=== PATIENT | female | born 1960 | race Caucasian/White ===

== ENCOUNTER 2017-06-05 11:59 | Emergency (ER) | payer MEDICARE ==
[2017-06-05 12:21] VITALS: BP 98/68
--- NOTE | 2017-06-05 12:45 | UC ---
Throat Pain/Nasal Jaylan HPI - HPI Summary HPI Summary: TWO WEEKS OF SINUS PRESSURE HEADACHE, THREE DAYS OF WORSENING COUGH. - History of Current Complaint Chief Complaint: UCRespiratory Stated Complaint: CONGESTION,COUGH Time Seen by Provider: 06/05/17 12:03 Hx Obtained From: Patient Hx Last Menstrual Period: age 40s Onset/Duration: Gradual Onset, Lasting Weeks, Worse Since - 3 DAYS Severity: Moderate Cough: Productive Associated Signs & Symptoms: Positive: Wheezing, Hoarseness, Sinus Discomfort, Nasal Discharge - Epiglottits Risk Factors Epiglottis Risk Factors: Negative - Allergies/Home Medications Allergies/Adverse Reactions: Allergies Allergy/AdvReac Type Severity Reaction Status Date / Time Methotrexate Allergy Pain Verified 05/29/16 15:27 Pregabalin [From Lyrica] Allergy Unknown Verified 05/29/16 15:27 Reaction Details Home Medications: Home Medications Folic Acid TAB* [Folvite TAB*] 800 mcg PO DAILY 06/05/17 [History Confirmed 09/09] Vitamin B Complex CAP* [B Complex CAP*] 1 cap PO DAILY 06/05/17 [History Confirmed 06/05/17] Vitamin D 3000 Units 1 tab PO DAILY 06/05/17 [History Confirmed 06/05/17] PMH/Surg Hx/FS Hx/Imm Hx Previously Healthy: Yes - Surgical History Surgical History: Yes Surgery Procedure, Year, and Place: Hysterectomy. Lymph Node Removal, LEFT THROAT 2010 - Family History Known Family History: Positive: Hypertension - Social History Occupation: Employed Full-time Lives: With Family Alcohol Use: None Substance Use Type: None Smoking Status (MU): Light Every Day Tobacco Smoker Type: Cigarettes Amount Used/How Often: 1 pack daily- less lately Cessation Counseling: Counseled 3+Min - 10 Min Review of Systems Constitutional: Negative Skin: Negative Eyes: Negative ENT: Nasal Discharge, Sinus Congestion, Sinus Pain/Tenderness Respiratory: Cough Cardiovascular: Negative Gastrointestinal: Negative Genitourinary: Negative Motor: Negative Neurovascular: Negative Musculoskeletal: Negative Neurological: Negative Psychological: Negative Is Patient Immunocompromised?: No All Other Systems Reviewed And Are Negative: Yes Physical Exam Triage Information Reviewed: Yes Appearance: No Pain Distress, Well-Nourished, Ill-Appearing Vital Signs: Initial Vital Signs Temp 98.4 F 06/05/17 12:15 Pulse 97 06/05/17 12:15 Resp 12 06/05/17 12:15 BP 98/68 09/12/17 12:15 Pulse Ox 99 06/05/17 12:15 Vital Signs Reviewed: Yes Eye Exam: Normal ENT Exam: Normal ENT: Positive: Hearing grossly normal, TM bulging, TM dull Dental Exam: Normal Neck exam: Normal Neck: Positive: Supple, Nontender, No Lymphadenopathy Respiratory Exam: Other - COUGH Respiratory: Positive: Chest non-tender, No respiratory distress, No accessory muscle use, Wheezing Cardiovascular Exam: Normal Cardiovascular: Positive: RRR, No Murmur, Pulses Normal Abdominal Exam: Normal Abdomen Description: Positive: Nontender Musculoskeletal Exam: Normal Neurological Exam: Normal Psychological Exam: Normal Skin Exam: Normal Throat Pain/Nasal Course/Dx - Differential Dx/Diagnosis Differential Diagnosis/HQI/PQRI: Pharyngitis, Sinusitis, Tonsillitis, URI Provider Diagnoses: SINUSITIS; BRONCHITIS WITH BRONCHOSPASM; TOBACCO ABUSE Discharge - Discharge Plan Condition: Stable Disposition: HOME Prescriptions: Albuterol HFA INHALER* [Ventolin HFA Inhaler*] 1 - 2 puff INH Q6H PRN #1 mdi PRN Reason: Wheezing Benzonatate CAP* [Tessalon 100 MG CAP*] 100 mg PO TID PRN #15 cap PRN Reason: Cough DOXYcycline CAP(*) [DOXYcycline 100MG CAP(*)] 100 mg PO BID #20 cap Patient Education Materials: How to Stop Smoking (ED), Sinusitis (ED), Acute Bronchitis (ED), Bronchospasm (ED) Referrals: Marycruz Prabhakar MD [Primary Care Provider] -
== END 2017-06-05 13:07 | disposition home or self-care (01) ==
LOC: UCCORT 11:59
DX: J32.9 Chronic sinusitis, unspecified (principal); J20.9 Acute bronchitis, unspecified; F17.210 Nicotine dependence, cigarettes, uncomplicated; Z71.6 Tobacco abuse counseling
CPT/HCPCS: 99212; G0463

== ENCOUNTER 2018-11-28 11:03 | Emergency (ER) | payer MEDICARE ==
[2018-11-28 11:43] VITALS: BP 122/72
--- NOTE | 2018-11-28 11:56 | UC ---
Respiratory Complaint HPI - HPI Summary HPI Summary: 58 yo female with cough/wheezing and nasal congestion/sinus pressure x months worse past few days unable to get inhalers filled due to poor prescription coverage no f/c sore left auricle which she blames on headphones - History of Current Complaint Chief Complaint: UCRespiratory Stated Complaint: COUGH,CONGESTION Time Seen by Provider: 11/28/18 11:49 Hx Obtained From: Patient Hx Last Menstrual Period: age 40s Onset/Duration: Gradual Onset, Lasting Weeks, Worse Since - 3d Timing: Constant Severity Initially: Mild Severity Currently: Moderate Pain Intensity: 6 Pain Scale Used: 0-10 Numeric Character: Cough: Productive, Sputum Description: - yellow/thick Aggravating Factors: Recumbent Position Alleviating Factors: Nothing Associated Signs And Symptoms: Positive: Wheezing, Nasal Congestion, Sinus Discomfort - Allergies/Home Medications Allergies/Adverse Reactions: Allergies Allergy/AdvReac Type Severity Reaction Status Date / Time methotrexate Allergy Pain Verified 11/28/18 11:35 pregabalin [From Lyrica] Allergy See Comment Verified 11/28/18 11:35 Home Medications: Home Medications Pseudoephedrine TAB* [Sudafed TAB*] 30 mg PO Q6H PRN 11/28/18 [History Confirmed 11/28/18] PMH/Surg Hx/FS Hx/Imm Hx Previously Healthy: Yes - RA Respiratory History: COPD - Surgical History Surgical History: Yes Surgery Procedure, Year, and Place: Hysterectomy. Lymph Node Removal, LEFT THROAT 2010. hand x4 - Family History Known Family History: Positive: Hypertension - Social History Alcohol Use: None Substance Use Type: None Smoking Status (MU): Heavy Every Day Tobacco Smoker Type: Cigarettes Amount Used/How Often: 1 pack daily- less lately Review of Systems All Other Systems Reviewed And Are Negative: Yes Constitutional: Positive: Negative Skin: Positive: Negative Eyes: Positive: Negative ENT: Positive: Nasal Discharge, Sinus Congestion, Sinus Pain/Tenderness Respiratory: Positive: Cough Cardiovascular: Positive: Negative Gastrointestinal: Positive: Negative Genitourinary: Positive: Negative Motor: Positive: Negative Neurovascular: Positive: Negative Musculoskeletal: Positive: Arthralgia Neurological: Positive: Negative Psychological: Positive: Negative Physical Exam Triage Information Reviewed: Yes Appearance: Well-Appearing, No Pain Distress, Well-Nourished Vital Signs: Initial Vital Signs Temp 97.2 F 11/28/18 11:38 Pulse 78 11/28/18 11:38 Resp 16 11/28/18 11:38 BP 122/72 11/28/18 11:38 Pulse Ox 99 11/28/18 11:38 Vital Signs Reviewed: Yes Eyes: Positive: Conjunctiva Clear ENT: Positive: Hearing grossly normal, Pharynx normal, Nasal congestion, Nasal drainage, TMs normal, Sinus tenderness, Uvula midline. Negative: Tonsillar swelling, Tonsillar exudate, Trismus, Muffled voice, Hoarse voice, Dental tenderness Dental: Positive: Gross Decay/Caries @ - abysmal dentition with most teeth rotted to gum line Neck: Positive: Supple, Nontender, No Lymphadenopathy Respiratory: Positive: No respiratory distress, No accessory muscle use Cardiovascular: Positive: RRR, No Murmur Musculoskeletal: Positive: ROM Intact, No Edema Neurological: Positive: Alert Psychological Exam: Normal Skin Exam: Normal Images Head: 1 - imflammed area/scabbed Respiratory Course/Dx - Differential Dx/Diagnosis Provider Diagnosis: Acute bronchitis with bronchospasm, Sinusitis, acute, Smoker Discharge - Sign-Out/Discharge Documenting (check all that apply): Patient Departure All imaging exams completed and their final reports reviewed: No Studies - Discharge Plan Condition: Stable Disposition: HOME Prescriptions: Amoxicillin PO (*) [Amoxicillin 875 MG (*)] 875 mg PO BID #14 tab Fluticasone NASAL SPRAY 50MCG* [Flonase NASAL SPRAY 50MCG*] 2 spray BOTH NARES BID #1 btl Mupirocin 2% OINT* [Bactroban 2 % Oint*] 1 applic TOPICAL TID #1 tube predniSONE [Deltasone 20 MG TAB] 40 mg PO DAILY #10 tab Patient Education Materials: Acute Bronchitis (ED), Sinusitis (ED) Referrals: Marycruz Prabhakar MD [Primary Care Provider] - 7 Days Additional Instructions: If ear lesion does not heal with the ointment we prescribe it needs rechecking - Billing Disposition and Condition Condition: STABLE Disposition: Home
[2018-11-28] MEDS ORDERED: Albuterol HFA INHALER* 8 gm MDI INH ONE (11:59)
== END 2018-11-28 12:45 | disposition home or self-care (01) ==
LOC: UCCORT 11:03
DX: J44.0 Chronic obstructive pulmonary disease with (acute) lower respiratory infection (principal); J20.9 Acute bronchitis, unspecified; J32.9 Chronic sinusitis, unspecified; M06.9 Rheumatoid arthritis, unspecified; R23.4 Changes in skin texture; F17.210 Nicotine dependence, cigarettes, uncomplicated; Z88.8 Allergy status to other drugs, medicaments and biological substances
CPT/HCPCS: 99213; A9270-GY; G0463

== ENCOUNTER 2018-12-06 08:25 | Emergency (ER) | payer MEDICARE ==
--- OUTSIDE RECORDS SUMMARY | 2018-12-06 08:34 | XMS REPORT | Continuity of Care Document ---
:1960 Author Organization [facility] Address [address], [place] [id number] Phone Care Team Providers Name Role Phone Sumeet Mccall MD Unavailable Unavailable Allergies, Adverse Reactions, Alerts Substance Reaction Status Methotrexate Analogues Active pregabalin Active Medications Medication Instructions Dosage Effective Dates Status Comments (start - stop) esomeprazole magnesium take 1 capsule by 40 MG - Active 40 mg capsule,delayed oral route every release day cyclobenzaprine 10 mg take 1-2 tablets - Active tablet by oral route at bedtime only as needed Remicade 100 mg infuse 400 400 milligram - Active intravenous solution milligram by intravenous route every 8 weeks magnesium 200 mg take 1 tablet by 1 tablet - Active tablet oral route every day Vitamin B-12 1,000 mcg take 1 Tablet by 1 Tablet - Active tablet Oral route every day Celebrex 200 mg take 1 - 2 - Active capsule capsules by oral route every day as needed folic acid 800 mcg take 1 tablet by 0.8 MG - Active tablet oral route every day Vitamin D3 5,000 unit take 1 by Oral 1 - Active tablet route once Pristiq 100 mg 24 hr take 1 tablet 100 MG - Active Tab (100MG) by oral route every day Problems Condition Effective Dates Clinical Status Comments (start - stop) Rheumatoid arthritis w/o rheumatoid factor, multiple sites Rheumatoid arthritis w/o rheumatoid factor, multiple sites Other snf (current) drug therapy Rheumatoid arthritis w/o rheumatoid factor, multiple sites Rheumatoid arthritis w/o rheumatoid factor, multiple sites Other snf (current) drug therapy Rheumatoid arthritis w/o rheumatoid factor, multiple sites Rheumatoid arthritis w/o rheumatoid factor, multiple sites Rheumatoid arthritis w/o rheumatoid factor, multiple sites Other terminal worker (current) drug therapy Rheumatoid arthritis w/o rheumatoid factor of multiple sites Rheumatoid arthritis w/o rheumatoid factor of multiple sites Rheumatoid arthritis w/o rheumatoid factor of multiple sites Primary generalized (osteo)arthritis 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 Other snf drug 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 of non-steroidal anti-inflammatories (NSAID) Polyarthritis Rheumatoid arthritis w/o rheumatoid factor of multiple sites Rheumatoid arthritis w/o rheumatoid factor of multiple sites Other terminal worker drug therapy 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 Rheumatoid arthritis w/o rheumatoid factor of multiple sites Rheumatoid arthritis w/o rheumatoid factor of multiple sites Rheumatoid arthritis w/o rheumatoid factor of multiple sites Other terminal worker drug therapy 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 Rheumatoid arthritis w/o rheumatoid factor of multiple sites Rheumatoid arthritis w/o rheumatoid factor of multiple sites Other terminal worker drug therapy Rheumatoid arthritis w/o rheumatoid factor of multiple sites Primary generalized (osteo)arthritis Other terminal worker drug therapy 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) use of non-steroidal anti-inflammatories (NSAID) Rheumatoid arthritis w/o rheumatoid factor of multiple sites 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 Rheumatoid arthritis w/o rheumatoid factor of multiple sites 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) use of non-steroidal anti-inflammatories (NSAID) Other terminal worker drug therapy 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 Rheumatoid arthritis w/o rheumatoid factor of multiple sites Other terminal worker drug therapy Tobacco use Rheumatoid arthritis w/o rheumatoid factor of multiple sites Other snf drug therapy Primary generalized (osteo)arthritis care home (current) use of non-steroidal anti-inflammatories (NSAID) Rheumatoid arthritis w/o rheumatoid factor of multiple sites Other terminal worker drug therapy Primary generalized (osteo)arthritis Rheumatoid arthritis w/o rheumatoid factor of multiple sites Polyarthritis Other snf drug therapy Rheumatoid arthritis w/o rheumatoid factor of multiple sites Polyarthritis Other terminal worker drug therapy Primary generalized (osteo)arthritis Rheumatoid arthritis w/o rheumatoid factor of multiple sites Other terminal worker drug therapy Primary generalized (osteo)arthritis Polyarthritis Rheumatoid arthritis, unspecified Other snf drug therapy Other terminal worker (current) drug therapy Rheumatoid arthritis, unspecified Other terminal worker (current) drug therapy Rheumatoid factor negative - Active Rheumatoid arthritis - Active Mapped from [facility] Chronic Conditions table on 12/01/2014 by the ICD9 to [employer] Bulk Mapping Utility. The mapped diagnosis code was Rheumatoid Arthritis, 714.0, added by Velvet Ochoa LPN, with responsible provider Yumiko Lopez PA-C. Onset date 04/25/2013; last addressed on 07/21/2014. Procedures Procedure Date CHEMO, IV INFUSION, 1 HR CHEMO, IV INFUSION, ADDL HR Infliximab injection Remicade Normal saline solution infus Results Test Name Date and Time Measure Units Reference Range Abnormal Flag Status Comments No information Advance Directives Directive Yes / No Effective Date File Name No information Encounters Encounter Practice Location Reason(s) Diagnoses Date Provider Providers Description For Visit Copied on Encounter Arthritis Arthritis Rheumatoid Stefany STAHL [facility] arthritis w/o 0 Sumeet. 5794 Provider: Pawel jaffe 9 [facility], 5794 PLLC Wil matrinez Kragh MD, [facility], [address] [place] [address], [facility] [place], [id number], [address], . [address], [id number], tel:[phone] E. [place], tel:+4 [place], [address]. 99[address] tel:[phone] Arthritis Arthritis Rheumatoid John [facility] arthritis w/o RENA December. Provider: Pawel Armas rheumatoid 9 57 [facility], 5794 PLLC Koko martinez MD, [facility], [address] [place], [place] [address]Other [place], [place], snf [place], [address], (current) drug [id number], [address], [id number], therapy [place]. E. [place] tel:[phone] [place], tel:[phone] [place], [address]. 614165 tel:[phone] Arthritis Arthritis Rheumatoid [facility] arthritis w/o MD Hsieh. Provider: Pawel Armas rheumatoid 8 5794 Le [facility], 5794 PLLC factor, Koko Wadsworth MD, [facility], [address] [place] [address], [place], [place], [place], [address], [id number], [address], [id number], [place]. [place]. [place] tel:[phone] [place], tel:[phone] [place], [address]. 067846 tel:[phone] Arthritis Arthritis Rheumatoid [facility] arthritis w/o 0 CA-C December. Provider: Pawel jaffe 8 5794 [facility], 5794 PLLC factor, [facility], 6 [facility], [facility], [facility], terminal worker [place], [place], [place], (current) drug [id number], [place], [address]. [id number], therapy [place]. tel:+[phone] [place] tel:[phone] tel:[phone] Arthritis Arthritis Rheumatoid [facility] arthritis w/o MD Hsieh. Provider: Pawel Armas rheumatoid 8 5794 Le [facility], 5794 PLLC factor, Koko Wadsworth MD, [facility], [address] [place] [address], [place], [facility] [place], [address], [id number], [address], [id number], [place]. [place]. [place] tel:[phone] [place], tel:[phone] [place], [address]. [address] tel:[phone] Arthritis Arthritis Rheumatoid [facility] arthritis w/o MD Hsieh. Provider: Pawel Armas rheumatoid 8 5794 Le [facility], 5794 PLLC factor, Koko Wadsworth MD, [facility], [address] [place] [address], [place], [facility], [place], [address], [id number], [address], [id number], [place]. E. [place] tel:[phone] [place], tel:[phone] [place], [address]. 130487 tel:[phone] Arthritis Arthritis Rheumatoid [facility] arthritis w/o PA-C December. Provider: Pawel jaffe 8 5794 Le [facility], 5794 PLLC factor, Koko Wadsworth MD, [facility], [address] [place] [address], sitesOther [place], [place], snf [place], [address], (current) drug [id number], [address], [id number], therapy [place]. E. US tel:[phone] [place], tel:[phone] [place], [address]. 430805 tel:[phone] Arthritis Arthritis Rheumatoid [facility] arthritis w/o MD Hsieh. Provider: Pawel jaffe 8 5794 [facility], 5794 PLLC factor of Koko Wadsworth MD, [facility], [address], [place], [place], [place], [address], [id number], [address], [id number], [place]. E. [place] tel:[phone] [place], tel:[phone] [place], [address]. 896886 tel:[phone] Arthritis Arthritis Rheumatoid [facility] arthritis w/o MD Hsieh. Provider: Pawel jaffe 8 5794 Le [facility], 5794 PLLC factor of Koko Wadsworth MD, [facility], [address] [place] [address], [place], [place], [place], [address], [id number], [address], [id number], [place]. E. [place] tel:[phone] [place], tel:[phone] [place], [address]. 131830 tel:[phone] Arthritis Arthritis Rheumatoid [facility] arthritis w/o PA-C December. Provider: Associates Associates rheumatoid 8 5794 Le [facility], 5794 PLLC factor of Koko Wadsworth MD, [facility], [address] [place] [address], sitesPrimary [place], [place], generalized [place], [address], (osteo)arthrit [id number], [address], [id number], isOther [place]. E. [place] unilateral tel:[phone] [place], tel:[phone] [place] [address] [place], [address]. 522[address] of first tel:[phone] carpometacarpa [id number] l joint of right handOther terminal worker drug therapyLong term (current) use of non-steroidal anti-inflammat ories (NSAID)Polyart hritis Arthritis Arthritis Rheumatoid Nov- [facility] arthritis w/o MD Hsieh. Provider: Pawel Armas rheumatoid 8 5794 [facility], 5794 PLLC factor of Koko Wadsworth MD, [facility], [address] [place] [address], [place], [place], [place], [address], [id number], [address], [id number], [place]. E. [place] tel:[phone] [place], tel:[phone] [place], [address]. 754234 tel:[phone] Arthritis Arthritis Rheumatoid Oct- [facility] arthritis w/o PA-C December. Provider: Pawel Armas rheumatoid 8 5794 Le [facility], 5794 PLLC factor of Koko Wadsworth MD, [facility], [address] [place] [address], sitesOther [place], [place], snf drug [place], [address], therapyOther [id number], [address], [id number], unilateral [place]. E. [place] secondary OA tel:[phone] [place], tel:[phone] [place] [address] [place], [address]. 768244 carpometacarpa tel:[phone] l joint of [id number] right hand Arthritis Arthritis Rheumatoid [facility] arthritis w/o 2 MD Hsieh. Provider: Pawel Armas rheumatoid 8 5794 Le [facility], 5794 PLLC factor of Koko Wadsworth MD, [facility], [address], [place], [place], [place], [address], [id number], [address], [id number], [place]. [place]. [place] tel:[phone] [place], tel:[phone] [place], [address]. 603879 tel:[phone] Arthritis Arthritis Rheumatoid Jul- [facility] arthritis w/o MD Hsieh. Provider: Associates Pawel rheumatoid 7 5794 Le PLL[facility], 5794 PLLC factor of Koko Wadsworth MD, [facility], [address], [place], [place], [place], [address], [id number], [address], [id number], [place]. E. [place] tel:[phone] [place], tel:[phone] [place], [address]. 493464 tel:[phone] Arthritis Arthritis Rheumatoid [facility] arthritis w/o CA-C December. Provider: Pawel Armas rheumatoid 7 5794 Le [facility], 5794 PLLC factor of Koko Wadsworth MD, [facility], [address] [place] [address], sitesOther [place], [place], snf drug [place], [address], therapyOther [id number], [address], [id number], unilateral [place]. E. [place] secondary OA tel:[phone] [place], tel:[phone] [place], [address]. 673[address] carpometacarpa tel:[phone] l joint of [id number] right hand Arthritis Arthritis Rheumatoid [facility] arthritis w/o 2 MD Hsieh. Provider: Pawel Armas rheumatoid 7 5794 Le [facility], 5794 PLLC factor of Koko Wadsworth MD, [facility], [address], [place], [place], [place], [address], [id number], [address], [id number], [place]. E. [place] tel:[phone] [place], tel:[phone] [place], [address]. 676593 tel:[phone] Arthritis Arthritis Rheumatoid Mar- [facility] arthritis w/o 0 PA-C Provider: Pawel Armas rheumatoid 7 B. 5794 Le PLLC, 5794 PLLC factor of Koko Wadsworth MD, [facility], [address], sitesOther [place], [place], snf drug [place], [address], therapy [id number], [address], [id number], [place]. E. [place] tel:[phone] [place], tel:[phone] [place], [address]. 051533 tel:[phone] Arthritis Arthritis Rheumatoid [facility] arthritis w/o PA-C December. Provider: Pawel Armas rheumatoid 7 5794 Le [facility], 5794 PLLC factor of Koko Wadsworth MD, [facility], [address], sitesPrimary [place], [place], generalized [place], [address], (osteo)arthrit [id number], [address], [id number], isOther long [place]. E. [place] term drug tel:[phone] [place], tel:[phone] therapyOther [address] [place], [address]. 2638[address] unilateral tel:[phone] secondary OA [id number] of first carpometacarpa l joint of right handLong term (current) use of non-steroidal anti-inflammat ories (NSAID) Arthritis Arthritis Rheumatoid Dec- [facility] arthritis w/o PA-C December. Provider: Pawel Armas rheumatoid 7 5794 Le [facility], 5794 PLLC factor of Koko Wadsworth MD, [facility], [address], sitesOther [place], [place], unilateral [place], [address], secondary OA [id number], [address], [id number], of first [place]. E. [place] carpometacarpa tel:[phone] [place], tel:[phone] [address] [place], [address]. 311005 right hand tel:[phone] Arthritis Arthritis Rheumatoid Nov- [facility] arthritis w/o PA-C December. Provider: Pawel Armas rheumatoid 7 5794 Le [facility], 5794 PLLC factor of Koko Wadsworth MD, [facility], [address] [place] [address], sitesLong term [place], [place], (current) use [place], [address], of [id number], [address], [id number], non-steroidal [place]. E. US anti-inflammat tel:[phone] [place], tel:[phone] ories [address] [place], [address]. 016887 (NSAID)Other tel:[phone] snf drug [phone] therapyOther unilateral secondary OA of first carpometacarpa l joint of right hand Arthritis Arthritis Rheumatoid [facility] arthritis w/o 0 PA-C Thompson. Provider: Pawel Armas rheumatoid 7 5794 Le PLL[facility], 5794 PLLC factor of Koko Wadsworth MD, [facility], [address], sitesOther [place], [place], terminal worker drug [place], [address], therapyTobacco [id number], [address], [id number], use [place]. E. [place] tel:[phone] [place], tel:[phone] [place], [address]. 825306 tel:[phone] Arthritis Arthritis Rheumatoid [facility] arthritis w/o 0 PA-C December. Provider: Pawel Armas rheumatoid 6 5794 Le PLL[facility], 5794 PLLC factor of Koko Wadsworth MD, [facility], [address], sitesOther [place], [place], snf drug [place], [address], therapyPrimary [id number], [address], [id number], generalized [place]. E. [place] (osteo)arthrit tel:[phone] [place], tel:[phone] isLong [place] [address] [place], [address]. 774667 (current) use tel:[phone] of [phone] non-steroidal anti-inflammat ories (NSAID) Arthritis Arthritis Rheumatoid [facility] arthritis w/o alanna Barth. Provider: Pawel Armas rheumatoid 6 5794 Le PLL[facility], 5794 PLLC factor of Koko Wadsworth MD, [facility], [address], sitesOther [place], [place], snf drug [place], [address], therapyPrimary [id number], [address], [id number], generalized [place]. E. [place] (osteo)arthrit tel:[phone] [place], tel:[phone] [place] [address] [place], [address]. 199165 tel:[phone] Arthritis Arthritis Rheumatoid Mar- Tonya GATEMAN-C [facility] arthritis w/o Gale. 5794 Provider: aPwel jaffe 6 [facility], 5794 PLLC factor of Ananth De La Torre MD, [facility] [place], [address], sitesPolyarthr [place], [place], itisOther long [id number], [address], term drug [place]. [address], [id number], therapy tel:[phone] [place]. [place] [address] [place], tel:[phone] [place], [address]. 729317 tel:[phone] Arthritis Arthritis Rheumatoid January- [facility] arthritis w/o PA-C December. Provider: Pawel jaffe 6 5794 Le [facility], 5794 PLLC factor of Koko Wadsworth MD, [facility], [address], sitesPolyarthr [place], [place], itisOther long [place], [address], term drug [id number], [address], [id number], therapyPrimary [place]. E. [place] generalized tel:[phone] [place], tel:[phone] (osteo)arth[place] [address] [place], [address]. 108[address] is tel:[phone] Arthritis Arthritis Rheumatoid Nov- [facility] arthritis w/o PA-C December. Provider: Pawel Armas rheumatoid 6 5794 Le [facility], 5794 PLLC factor of Koko Wadsworth MD, [facility] [address], [address], sitesOther [place], [place], snf drug [place], [address], therapyPrimary [id number], [address], [id number], generalized [place]. E. US (osteo)arthrit tel:[phone] [place], tel:[phone] isPolyarthriti [address] [place], [address]. 423704 s tel:[phone] Arthritis Arthritis Rheumatoid Feb-0 [facility] arthritis, 4 PA-C December. Provider: Pawel Armas unspecifiedOth 6 5794 Le PLL[facility], 5794 PLLC er terminal worker [facility] Ananth STAHL, [facility] drug therapy [place], [address], [place], [place], [place], [address], [id number], [address], [id number], [place]. E. [place] tel:[phone] [place], tel:[phone] [address] [place], [address]. 666339 tel:[phone] Arthritis Arthritis Other long [facility] term (current) MD Hsieh. [facility] drug therapy 6 5794 PLLC, 5794 PLLC [facility], [address], [place], [place], [place], [id number], [id number], [place]. [place] tel:[phone] tel:[phone] Arthritis Arthritis Rheumatoid [facility] arthritis, 0 [place]. Provider: Pawel Armas unspecifiedOth 5 5794 Le PLL[facility], 5794 PLLC er terminal worker [facility], [facility] (current) drug [place], [address], therapy [place], [place], [place], [address], [id number], [address], [id number], [place]. E. US tel:[phone] [place], tel:[phone] [address] [place], [address]. 665472 tel:[phone] Arthritis Arthritis Sep- [facility] 7 PA-C December. [facility] 5 5794 PLLC, 5794 PLLC [facility], [address], [place], [place], [place], [id number], [id number], [place]. US tel:[phone] tel:[phone] Arthritis Arthritis [facility] PA-C December. Provider: [facility] 4 5794 Le PLLKaylin, 5794 PLLC Koko Wadsworth MD, [facility], [address] [place] [address], [place], [facility] [place], [place], [address], [id number], [address], [id number], [place]. E. US tel:[phone] [place], tel:[phone] [address] [place], [address]. 113459 tel:[phone] Arthritis Arthritis [facility] PA-C December. Provider: Associates Pawel 4 5794 Le DIANE, 5794 PLLC Koko Wadsworth MD, [facility], [address] [place] [address], [place], [facility] [place], [place], [address], [id number], [address], [id number], [place]. E. US tel:[phone] [place], tel:[phone] [place], [address]. 699185 tel:[phone] Arthritis Arthritis [facility] PA-C December. Provider: Associates Pawel 3 5794 Le DIANE, 5794 PLLC Koko Wadsworth MD, [facility], [address] [place] [address], [place], [facility] [place], [place], [address], [id number], [address], [id number], [place]. E. US tel:[phone] [place], tel:[phone] [place], [address]. 082623 tel:[phone] Arthritis Arthritis [facility] PA-C December. Provider: [facility] 1 5794 Le DIANE, 5794 PLLC Koko Wadsworth MD, [facility], [address] [place] [address], [place], [place], [place], [address], [id number], [address], [id number], [place]. E. US tel:[phone] [place], tel:[phone] [place], [address]. 957655 tel:[phone] Arthritis Arthritis [facility] 5-201 PA-C December. Provider: [facility] 1 5794 Le [facility], 5794 PLLC [facility], [facility], [facility] [address], [place], [facility], [place], [address], [id number], [address], [id number], [place]. E. US tel:[phone] [place], tel:[phone] [place], [address]. 619804 tel:[phone] Family History Family Member Diagnosis Age At Onset Grandfather Uncles Father Mother Aunt Immunizations Vaccine Date Status Comments Influenza, injectable, administered Source: Other Provider quadrivalent, split virus, 18 years or older Afluria Quad Influenza, injectable, administered Source: Other Provider trivalent, split virus, 4 years and older, Fluvirin [id number] Refused Flu vaccine administered Source: New Immunization Record Refused Flu vaccine administered Source: New Immunization Record Never had Zoster administered Source: New Immunization Record pneumo (2 yrs or older) administered Source: New Immunization Record (PPV23) Payers Payer name Insurance type Covered libertarian ID Authorization(s) Medicare MB [id number] AARP Supplement CI [id number] Social History Type Description Quantity Date Captured Comments Alcohol Use Details Unknown Caffeine Use Details Unknown Tobacco Use Status Smoking Status Unknown Sex Female Vital Signs Date / Height Weight BMI Pulse Blood Temperature Respiratory Body Head BMI Pulse Inhaled Time: Rate Pressure Rate Surface Circumference percentile Ox Ox Area 140.00 72 130/82 97.30 F 16 /min -2019 lbs /min mm[Hg] 12:27 PM 118/62 -2019 mm[Hg] 2:27 PM Chief Complaint And Reason For Visit No information Reason For Referral Reason For Referral No information Plan Of Treatment Date Type Action Status Goal Tobacco cessation counseling completed Goal Tobacco cessation counseling completed Goal Tobacco cessation counseling completed Goal Tobacco cessation counseling completed Goal Tobacco cessation counseling completed Goal Tobacco cessation counseling completed Goal Tobacco cessation counseling completed Goal Tobacco cessation counseling completed Goal Tobacco cessation counseling completed Referral Ordered: ordered [facility] (related to 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 Evaluate and treat Referral Ordered: ordered *DXA BONE DENSITY, AXIAL Appointment date/timeframe: 10/28/2015 Referral Ordered: ordered Orthopedics (related to Osteoarthrosis, unspecified whether generalized or ) Referral Ordered: ordered *SACROILIAC JOINTS X-RAY, MORE THAN 3 VIEWS Referral Ordered: ordered Referral: Orthopedics. Referral Ordered: ordered *LUMBOSACRAL SPINE X-RAY, 4 VIEWS Referral Ordered: ordered *CERVICAL SPINE X-RAY, 4 VIEWS Appointment Courtney Tsang BOOKED Appointment Courtney Tsang BOOKED History Of Present Illness Encounter Date Complaint History Of Present Illness No information Functional Status Date Functional Assessment No information Medications Administered Medication Instructions Dosage Effective Dates (start - stop) Status Comments No information Instructions Date Instruction Additional Information Reviewed importance of compliance/adherence to medications prescribed Risks/benefits of medications reviewed Discussed importance of holding DMARDs/ biologics if patient develops an infection and to notify the treating physician Reviewed importance of compliance/adherence to medications prescribed Risks/benefits of medications reviewed Discussed importance of holding DMARDs/ biologics if patient develops an infection and to notify the treating physician Risks/benefits of medications reviewed Discussed importance of holding DMARDs/ biologics if patient develops an infection and to notify the treating physician Reviewed importance of compliance/adherence to medications prescribed Reviewed importance of compliance/adherence to medications prescribed Discussed importance of holding DMARDs/ biologics if patient develops an infection and to notify the treating physician Risks/benefits of medications reviewed Risks/benefits of medications reviewed Call if symptoms persist Avoid OTC NSAIDS Risks/benefits of medications reviewed Call if symptoms persist Risks/benefits of medications reviewed Reviewed importance of compliance/adherence to medications prescribed Call if symptoms persist Risks/benefits of medications reviewed Discussed importance of holding DMARDs/ biologics if patient develops an infection and to notify the treating physician Reviewed importance of compliance/adherence to medications prescribed Risks/benefits of medications reviewed Discussed importance of holding DMARDs/ biologics if patient develops an infection and to notify the treating physician Reviewed importance of compliance/adherence to medications prescribed Risks/benefits of medications reviewed Discussed importance of holding DMARDs/ biologics if patient develops an infection and to notify the treating physician Risks/benefits of medications reviewed Post injection care reviewed, instructions given Reviewed importance of compliance/adherence to medications prescribed Risks/benefits of medications reviewed Discussed importance of holding DMARDs/ biologics if patient develops an infection and to notify the treating physician Avoid OTC NSAIDS Risks/benefits of medications reviewed Labs ordered to check blood counts, liver and kidney functions to monitor safety of medication. Reviewed importance of compliance/adherence to medications prescribed Avoid live vaccines Risks/benefits of medications reviewed Discussed importance of holding DMARDs/ biologics if patient develops an infection and to notify the treating physician Labs ordered to check disease activity. Discussed / Reviewed Labs Patient plan printed and given along with recommendations call if symptoms worsen maintain adequate water intake every day Reviewed importance of compliance/adherence to medications prescribed Risks/benefits of medications reviewed Discussed importance of holding DMARDs/ biologics if patient develops an infection and to notify the treating physician Labs ordered to check disease activity. Labs ordered to check blood counts, liver and kidney functions to monitor safety of medication. Daily range of motion exercises for symptomatic joints recommended. continue same medication plan Avoid live vaccines Discussed importance of holding DMARDs/ biologics if patient develops an infection and to notify the treating physician Reviewed importance of compliance/adherence to medications prescribed Avoid live vaccines Exercise more Discussed importance of holding DMARDs/ biologics if patient develops an infection and to notify the treating physician Stretching Reviewed importance of compliance/adherence to medications prescribed Risks/benefits of medications reviewed Discussed importance of holding DMARDs/ biologics if patient develops an infection and to notify the treating physician Risks/benefits of medications reviewed Reviewed importance of compliance/adherence to medications prescribed Discussed importance of holding DMARDs/ biologics if patient develops an infection and to notify the treating physician Reviewed importance of compliance/adherence to medications prescribed Risks/benefits of medications reviewed Discussed importance of holding DMARDs/ biologics if patient develops an infection and to notify the treating physician Risks/benefits of medications reviewed Labs ordered to check disease activity. Labs ordered to check blood counts, liver and kidney functions to monitor safety of medication. Discussed / Reviewed Labs hold medication and call if any side effect develops
--- OUTSIDE RECORDS SUMMARY | 2018-12-06 08:35 | XMS REPORT | Continuity of Care Document ---
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 Rheumatoid arthritis w/o rheumatoid factor of multiple sites Rheumatoid arthritis w/o rheumatoid factor of multiple sites Rheumatoid arthritis w/o rheumatoid factor of multiple sites Primary generalized (osteo)arthritis 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 Other alf drug 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-steroidal anti-inflammatories (NSAID) Polyarthritis Rheumatoid arthritis w/o rheumatoid factor of multiple sites Rheumatoid arthritis w/o rheumatoid factor of multiple sites Other pit boss drug therapy 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 Rheumatoid arthritis w/o rheumatoid factor of multiple sites Rheumatoid arthritis w/o rheumatoid factor of multiple sites Rheumatoid arthritis w/o rheumatoid factor of multiple sites Other pit boss drug therapy 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 Rheumatoid arthritis w/o rheumatoid factor of multiple sites Rheumatoid arthritis w/o rheumatoid factor of multiple sites Other pit boss drug therapy Rheumatoid arthritis w/o rheumatoid factor of multiple sites Primary generalized (osteo)arthritis Other pit boss drug therapy 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-steroidal anti-inflammatories (NSAID) Rheumatoid arthritis w/o rheumatoid factor of multiple sites 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 Rheumatoid arthritis w/o rheumatoid factor of multiple sites 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-steroidal anti-inflammatories (NSAID) Other pit boss drug therapy 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 Rheumatoid arthritis w/o rheumatoid factor of multiple sites Other pit boss drug therapy Tobacco use Rheumatoid arthritis w/o rheumatoid factor of multiple sites Other alf drug therapy Primary generalized (osteo)arthritis assisted (current) use of non-steroidal anti-inflammatories (NSAID) Rheumatoid arthritis w/o rheumatoid factor of multiple sites 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 pit boss drug 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 Primary generalized (osteo)arthritis Rheumatoid arthritis w/o rheumatoid factor of multiple sites Polyarthritis Other alf drug therapy Rheumatoid arthritis w/o rheumatoid factor of multiple sites Polyarthritis Other pit boss drug therapy Primary generalized (osteo)arthritis Rheumatoid arthritis w/o rheumatoid factor of multiple sites Other pit boss drug 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 The mapped diagnosis code was Rheumatoid Arthritis, 714.0, added by Velvet Ochoa LPN, with responsible provider Yumiko Lopez PA-C. Onset date 04/25/2013; last addressed on 07/21/2014. Procedures Procedure Date No information Results Test Name Date and Time Measure Units Reference Range Abnormal Flag Status Comments No information Advance Directives Directive Yes / No Effective Date File Name No information Encounters Encounter Practice Location Reason(s) Diagnoses Date Provider Providers Description For Visit Copied on Encounter Arthritis Arthritis Rheumatoid Stefany STAHL [facility] arthritis w/o Sumeet. 5794 Provider: Pawel jaffe 9 [facility], 5794 [facility]C [facility], [facility], [address] [place] [address], [place], [facility], [id number], [address], . [facility] C, [id number], tel:[phone] [place] [address] [place], tel:[phone] [place], [address]. 274543 tel:[phone] Arthritis Arthritis [facility] MD Hsieh. Pawel Armas 9 5794 PLLC, 5794 PLLC [facility], [place], [place], [id number], [id number], [place]. [place] tel:[phone] tel:[phone] Arthritis Arthritis Rheumatoid [facility] arthritis w/o RENA December. Provider: Pawel jaffe 9 5794 Le PLLC, 5794 PLLC Koko martinez MD, [facility], [address] [place] [address], [facility] [place] [place], pit boss [place], [address], (current) drug [id number], [address], [id number], therapy [place]. [place]. [place] tel:[phone] [place], tel:[phone] [place], [address]. 519215 tel:[phone] Arthritis Arthritis Rheumatoid Aug- [facility] arthritis w/o 6 MD Hsieh. Provider: Pawel jaffe 8 5794 Le PLLC, 5794 PLLC factorKoko MD, [facility], [address] [place] [address], [place], [facility], [place], [address], [id number], [address], [id number], [place]. [place]. [place] tel:[phone] [place], tel:[phone] [place], [address]. 885474 tel:[phone] Arthritis Arthritis Rheumatoid Jun- [facility] arthritis w/o 0 NV-C December. Provider: Pawel jaffe 8 5794 [facility] Ring [facility], 5794 PLLC factor, [facility], 6 [facility], [facility], [facility], [place], [place], alf [place], [place], [place], (current) drug [id number], [place], [address]. [id number], therapy [place]. tel:+[phone] [place] tel:[phone] tel:[phone] Arthritis Arthritis Rheumatoid [facility] arthritis w/o 9 MD Hsieh. Provider: Pawel jaffe 8 5794 Le PLLC, 5794 PLLC factorKoko MD, [facility], [address] [place] [address], [place], [facility], [place], [address], [id number], [address], [id number], [place]. [place]. [place] tel:[phone] [place], tel:[phone] [place], [address]. 895232 tel:[phone] Arthritis Arthritis Rheumatoid May-0 [facility] arthritis w/o 4 MD Hsieh. Provider: [facility] rheumatoid 8 5794 Le PLLC, 5794 PLLC factor, Koko Wadsworth MD, [facility], [address] [place] [address], [place], [place], [place], [address], [id number], [address], [id number], [place]. E. [place] tel:[phone] [place], tel:[phone] [place], [address]. 774135 tel:[phone] Arthritis Arthritis Rheumatoid [facility] arthritis w/o NV-C December. Provider: Pawel Armas rheumatoid 8 5794 Le PLLC, 5794 PLLC factor, Koko Wadsworth MD, [facility], [address] [place] [address], sitesOther [place], [place], alf [place], [address], (current) drug [id number], [address], [id number], therapy [place]. E. [place] tel:[phone] [place], tel:[phone] [place], [address]. 641168 tel:[phone] Arthritis Arthritis Rheumatoid [facility] arthritis w/o MD Hsieh. Provider: Pawel Armas rheumatoid 8 5794 Le PLLC, 5794 PLLC factor of Koko Wadsworth MD, [facility], [address] [place] [address], [place], [place], [place], [address], [id number], [address], [id number], [place]. E. [place] tel:[phone] [place], tel:[phone] [place], [address]. 242848 tel:[phone] Arthritis Arthritis Rheumatoid [facility] arthritis w/o MD Hsieh. Provider: Pawel Associates rheumatoid 8 5794 Le PLLC, 5794 PLLC factor of Koko Wadsworth MD, [facility], [address] [place] [address], [place], [place], [place], [address], [id number], [address], [id number], [place]. E. [place] tel:[phone] [place], tel:[phone] [place], [address]. 910613 tel:[phone] Arthritis Arthritis Rheumatoid January-0 [facility] arthritis w/o PA-C December. Provider: Pawel Armas rheumatoid 8 5794 Le PLLC, 5794 PLLC factor of Koko Wadsworth MD, [facility], [address] [place] [address], sitesPrimary [place], [place], generalized [place], [address], (osteo)arthrit [id number], [address], [id number], isOther [place]. E. [place] unilateral tel:[phone] [place], tel:[phone] [place] [address] [place], [address]. [address] of first tel:[phone] carpometacarpa [phone] l joint of right handOther alf drug therapyLong term (current) use of non-steroidal anti-inflammat ories (NSAID)Polyart hritis Arthritis Arthritis Rheumatoid [facility] arthritis w/o MD Hsieh. Provider: Pawel jaffe 8 5794 Le PLLC, 5794 PLLC factor of Koko Wadsworth MD, [facility], [address] [place] [address], [place], [place], [place], [address], [id number], [address], [id number], [place]. E. [place] tel:[phone] [place], tel:[phone] [place], [address]. 878457 tel:[phone] Arthritis Arthritis Rheumatoid [facility] arthritis w/o PA-C December. Provider: Pawel jaffe 8 5794 Le PLLC, 5794 PLLC factor of Koko Wadsworth MD, [facility], [address] [place] [address], sitesOther [place], [place], pit boss drug [place], [address], therapyOther [id number], [address], [id number], unilateral [place]. E. [place] secondary OA tel:[phone] [place], tel:[phone] [place] [address] [place], [address]. 856954 carpometacarpa tel:[phone] l joint of [id number] right hand Arthritis Arthritis Rheumatoid [facility] arthritis w/o 2- MD Hsieh. Provider: Pawel Armas rheumatoid 8 5794 Le PLLC, 5794 PLLC factor of Koko Wadsworth MD, [facility], [address] [place] [address], [place], [place], [place], [address], [id number], [address], [id number], [place]. E. [place] tel:[phone] [place], tel:[phone] [place], [address]. 983029 tel:[phone] Arthritis Arthritis Rheumatoid [facility] arthritis w/o MD Hsieh. Provider: Pawel Armas rheumatoid 7 5794 Le PLLC, 5794 PLLC factor of Koko Wadsworth MD, [facility], [address] [place] [address], [place], [place], [place], [address], [id number], [address], [id number], [place]. E. [place] tel:[phone] [place], tel:[phone] [place], [address]. 217412 tel:[phone] Arthritis Arthritis Rheumatoid [facility] arthritis w/o NV- December. Provider: Pawel Armas rheumatoid 7 5794 Le PLLC, 5794 PLLC factor of Koko Wadsworth MD, [facility], [address] [place] [address], sitesOther [place], [place], pit boss drug [place], [address], therapyOther [id number], [address], [id number], unilateral [place]. E. [place] secondary OA tel:[phone] [place], tel:[phone] [place] [address] [place], [address]. 659016 carpometacarpa tel:[phone] l joint of 7326107 right hand Arthritis Arthritis Rheumatoid [facility] arthritis w/o 2 MD Hsieh. Provider: Pawle Armas rheumatoid 7 5794 Le PLLC, 5794 PLLC factor of Koko Wadsworth MD, [facility], [address] [place] [address], [place], [place], [place], [address], [id number], [address], [id number], [place]. E. [place] tel:[phone] [place], tel:[phone] [place], [address]. 116311 tel:[phone] Arthritis Arthritis Rheumatoid Mar- [facility] arthritis w/o 0-201 PA-C Provider: Pawel Armas rheumatoid 7 B. 5794 Le PLLC, 5794 PLLC factor of Koko Wadsworth MD, [facility], [address] [place] [address], sitesOther [place], [place], pit boss drug [place], [address], therapy [id number], [address], [id number], [place]. E. [place] tel:[phone] [place], tel:[phone] [place], [address]. 048802 tel:[phone] Arthritis Arthritis Rheumatoid January- [facility] arthritis w/o PA-C December. Provider: Pawel Armas rheumatoid 7 5794 Le PLLC, 5794 PLLC factor of Koko Wadsworth MD, [facility], [address] [place] [address], sitesPrimary [place], [place], generalized [place], [address], (osteo)arthrit [id number], [address], [id number], isOther long [place]. E. [place] term drug tel:[phone] [place], tel:[phone] therapyOther [address] [place], [address]. [address] unilateral tel:[phone] secondary OA [id number] of first carpometacarpa l joint of right handLong term (current) use of non-steroidal anti-inflammat ories (NSAID) Arthritis Arthritis Rheumatoid Dec- [facility] arthritis w/o PA-C December. Provider: Pawel Armas rheumatoid 7 5794 Le PLLC, 5794 PLLC factor of Koko Wadsworth MD, [facility], [address] [place], sitesOther [place], [place], unilateral [place], [address], secondary OA [id number], [address], [id number], of first [place]. E. [place] carpometacarpa tel:[phone] [place], tel:[phone] [place], [address]. 001042 right hand tel:[phone] Arthritis Arthritis Rheumatoid Nov- [facility] arthritis w/o 7 PA-C December. Provider: Pawel Armas rheumatoid 7 5794 Le PLLC, 5794 PLLC factor of Koko Wadsworth MD, [facility], [address] [place], sitesLong term [place], [place], (current) use CARLOS, [address], of [id number], [address], [id number], non-steroidal [place]. E. [place] anti-inflammat tel:[phone] [place], tel:[phone] [place], [address]. 262927 (NSAID)Other tel:[phone] alf drug [phone] therapyOther unilateral secondary OA of first carpometacarpa l joint of right hand Arthritis Arthritis Rheumatoid [facility] arthritis w/o 0- PA-C Thompson. Provider: Pawel Armas rheumatoid 7 5794 Le PLLC, 5794 PLLC factor of Koko Wadsworth MD, [facility], [address] [place], sitesOther [place], [place], alf drug CRALOS, [address], therapyTobacco [id number], [address], [id number], use [place]. E. [place] tel:+[phone] [place], tel:[phone] [place], [address]. 606377 tel:[phone] Arthritis Arthritis Rheumatoid [facility] arthritis w/o 0-201 PA-C December. Provider: Pawel Armas rheumatoid 6 5794 Le PLLC, 5794 PLLC factor of Koko Wadsworth MD, [facility], [address] [place], sitesOther [place], [place], pit boss drug CARLOS, [address], therapyPrimary [id number], [address], [id number], generalized [place]. E. [place] (osteo)arthrit tel:[phone] [place], tel:[phone] [place], [address]. 145693 (current) use tel:[phone] non-steroidal anti-inflammat ories (NSAID) Arthritis Arthritis Rheumatoid Jun- [facility] arthritis w/o [facility]. Provider: Pawel Armas [facility] 6 5794 Le PLLC, 5794 PLLC factor of Koko Wadsworth MD, [facility], [address] [place], sitesOther [place], [place], alf drug [place], [address], therapyPrimary [id number], [address], [id number], generalized [place]. E. [place] (osteo)arthrit tel:+[phone] [place], tel:[phone] [place] [address] [place], [address]. 730477 tel:[phone] Arthritis Arthritis Rheumatoid Mar- Tonya [employer] MUSHROOM-C [facility] arthritis w/o Gale. 5794 Provider: Pawel Armas [address] Le PLLC, 5794 PLLC factor of Ananth De La Torre MD, [facility] [place], [address] [place], sitesPolyarthr [place], [place], itisOther long [id number], [address], term drug [place]. [address], [id number], therapy tel:[phone] [place] [address] [place], tel:+13154 [place], [address]. 953077 tel:[phone] Arthritis Arthritis Rheumatoid January- [facility] arthritis w/o PA-C December. Provider: Pawel Armas [place] [address] 5794 Le PLLC, 5794 PLLC factor of Koko Wadsworth MD, [facility], [address] [place], sitesPolyarthr [place], [place], itisOther long [place], [address], term drug [id number], [address], [id number], therapyPrimary [place]. E. [place] generalized tel:[phone] [place], tel:[phone] (osteo)arth[place] [address] [place], [address]. 340942 is tel:[phone] Arthritis Arthritis Rheumatoid Nov- [facility] arthritis w/o PA-C December. Provider: Associates Pawel rheumatoid 6 5794 Le PLLC, 5794 PLLC factor of Koko Wadsworth MD, [facility] multiple [place], [address] [place], sitesOther [place], [place], pit boss drug [place], [address], therapyPrimary [id number], [address], [id number], generalized [place]. E. [place] (osteo)arthrit tel:[phone] [place], tel:[phone] [place]Poly[place]rit[place] [address] [place], [address]. 818828 s tel:[phone] Arthritis Arthritis Rheumatoid Oct-0 [facility] arthritis, PA-C December. Provider: Pawel Armas unspecifiedOth 6 5794 Le PLLC, 5794 PLLC er alf Koko Wadsworth MD, [facility] drug therapy [place], [address] [place], [place], [place], [place], [address], [id number], [address], [id number], [place]. E. [place] tel:+[phone] [place], tel:[phone] [place], [address]. 999782 tel:[phone] Arthritis Arthritis Other long Sep- [facility] term (current) MD Hsieh. [facility] drug therapy 6 5794 PLLC, 5794 PLLC [facility], [place], [place], [place], [place], [id number], [id number], [place]. [place] tel:[phone] tel:[phone] Arthritis Arthritis Rheumatoid [facility] PA-C [facility] arthritis, 0- [place]. Provider: Pawel Armas unspecifiedOth 5 5794 Le PLLC, 5794 PLLC er pit boss Koko Wadsworth MD, [facility] (current) drug [place], [address] [place], therapy [place], [place], [place], [address], [id number], [address], [id number], [place]. E. US tel:+[phone] [place], tel:[phone] [place], [address]. 322577 tel:[phone] Arthritis Arthritis [facility] 7 PA-C December. [facility] 5 5794 PLLC, 5794 PLLC [facility], [place], [place], [place], [place], [id number], [id number], [place]. [place] tel:[phone] tel:[phone] Arthritis Arthritis [facility] PA-C December. Provider: [facility] 4 5794 Le PLLC, 5794 PLLC Koko Wadsworth MD, [facility], [address] [place] [address], [place], [facility] [place], [place], [address], [id number], [address], [id number], [place]. E. [place] tel:[phone] [place], tel:[phone] [address] [place], [address]. 300818 tel:[phone] Arthritis Arthritis [facility] PA-C December. Provider: [facility] 4 5794 Le PLLKaylin, 5794 PLLC Koko Wadsworth MD, [facility], [address] [place] [address], [place], [facility] [place], [place], [address], [id number], [address], [id number], [place]. E. US tel:[phone] [place], tel:[phone] [address] [place], [address]. 479853 tel:[phone] Arthritis Arthritis [facility] PA-C December. Provider: [facility] 3 5794 Le DIANE, 5794 PLLC Koko Wadsworth MD, [facility], [address] [place] [address], [place], [facility], [place], [address], [id number], [address], [id number], [place]. E. [place] tel:[phone] [place], tel:[phone] [address] [place], [address]. 528866 tel:[phone] Arthritis Arthritis [facility] PA-C December. Provider: [facility] 1 5794 Le DIANE, 5794 PLLC Koko Wadsworth MD, [facility], [address] [place], [place], [facility] [place], [place], [address], [id number], [address], [id number], [place]. E. [place] tel:[phone] [place], tel:[phone] [place], [address]. 146287 tel:[phone] Arthritis Arthritis [facility] 5-201 PA-C December. Provider: [facility] 1 5794 Le [facility], 5794 PLL Koko Wadsworth MD, [facility], [address] [place], [place], [place], [place], [address], [id number], [address], [id number], [place]. E. [place] tel:[phone] [place], tel:[phone] [place], [address]. 675960 tel:[phone] Family History Family Member Diagnosis Age At Onset Grandfather Uncles Father Mother Aunt Immunizations Vaccine Date Status Comments Influenza, injectable, administered Source: Other Provider quadrivalent, split virus, 18 years or older Afluria Quad 6831-6131 Influenza, injectable, administered Source: Other Provider trivalent, split virus, 4 years and older, Fluvirin 2121-9319 Refused Flu vaccine administered Source: New Immunization Record Refused Flu vaccine administered Source: New Immunization Record Never had Zoster administered Source: New Immunization Record pneumo (2 yrs or older) administered Source: New Immunization Record (PPV23) Payers Payer name Insurance type Covered alliance party ID Authorization(s) Medicare MB [id number] AARP Supplement CI [id number] Social History Type Description Quantity Date Captured Comments Sex Female Vital Signs Date / Height Weight BMI Pulse Blood Temperature Respiratory Body Head BMI Pulse Inhaled Time: Rate Pressure Rate Surface Circumference percentile Ox Ox Area No information Chief Complaint And Reason For Visit No [...] Tobacco cessation counseling completed Referral Ordered: ordered [facility] (related to 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 Evaluate and treat Referral [...] infection and to notify the treating physician Call if symptoms persist Reviewed importance of compliance/adherence to medications prescribed Discussed importance of holding DMARDs/ biologics if patient develops an infection and to notify the treating physician Risks/benefits of medications reviewed Risks/benefits of medications reviewed Avoid OTC NSAIDS Risks/benefits of medications reviewed Call if symptoms persist Risks/benefits of medications reviewed Reviewed importance of compliance/adherence to medications prescribed Risks/benefits of medications reviewed Discussed importance of holding DMARDs/ biologics if patient develops an infection and to notify the treating physician Call if symptoms persist Reviewed importance of compliance/adherence to medications prescribed [...] safety of medication. Discussed / Reviewed Labs Patient plan printed and given along with recommendations call if symptoms worsen maintain adequate water intake every day Reviewed importance of compliance/adherence to medications prescribed Avoid live vaccines Risks/benefits of medications reviewed Discussed importance of holding DMARDs/ biologics if patient develops an infection and to notify the treating physician Labs ordered to check disease activity. Reviewed importance of compliance/adherence to medications prescribed Risks/benefits of medications reviewed Discussed importance of holding DMARDs/ biologics if patient develops an infection and to notify the treating physician Avoid live vaccines Discussed importance of holding DMARDs/ biologics if patient develops an infection and to notify the treating physician Labs ordered to check disease activity. Labs ordered to check blood counts, liver and kidney functions to monitor safety of medication. Daily range of motion exercises for symptomatic joints recommended. continue same medication plan Reviewed importance of compliance/adherence to medications prescribed Exercise more Discussed importance of holding DMARDs/ biologics if patient develops an infection and to notify the treating physician Stretching Avoid live vaccines Reviewed importance of compliance/adherence to medications prescribed [...]
[2018-12-06 08:40] VITALS: BP 144/90
--- NOTE | 2018-12-06 08:59 | UC ---
Throat Pain/Nasal Jaylan HPI - HPI Summary HPI Summary: sore throat x 2 days has white spots on her throat and mouth has been on amoxicillin for sinus infection , finished yesterday + cough , chest tightness, sob no fever, no chills - History of Current Complaint Chief Complaint: UCGeneralIllness Stated Complaint: ORAL/THROAT CONCERN Time Seen by Provider: 12/06/18 08:44 Hx Obtained From: Patient Hx Last Menstrual Period: age 40s ?: No Onset/Duration: Gradual Onset, Lasting Days - 2, Still Present Severity: Moderate Pain Intensity: 5 Cough: Nonproductive Associated Signs & Symptoms: Negative: Drooling, Wheezing, Hoarseness, Sinus Discomfort, Nasal Discharge, Fever, Vomiting, Rash - Allergies/Home Medications Allergies/Adverse Reactions: Allergies Allergy/AdvReac Type Severity Reaction Status Date / Time methotrexate Allergy Pain Verified 12/06/18 08:38 pregabalin [From Lyrica] Allergy See Comment Verified 12/06/18 08:38 PMH/Surg Hx/FS Hx/Imm Hx - Additional Past Medical History Additional PMH: RA Respiratory History: COPD - Surgical History Surgical History: Yes Surgery Procedure, Year, and Place: Hysterectomy. Lymph Node Removal, LEFT THROAT 2010. hand x4 - Family History Known Family History: Positive: Hypertension - Social History Alcohol Use: None Substance Use Type: None Smoking Status (MU): Heavy Every Day Tobacco Smoker Type: Cigarettes Amount Used/How Often: 1 pack daily- less lately Review of Systems All Other Systems Reviewed And Are Negative: Yes Constitutional: Positive: Negative Skin: Positive: Negative Eyes: Positive: Negative ENT: Positive: Sore Throat Respiratory: Positive: Shortness Of Breath, Cough Cardiovascular: Positive: Negative Is Patient Immunocompromised?: No Physical Exam Triage Information Reviewed: Yes Appearance: Well-Appearing, Thin Vital Signs: Initial Vital Signs Temp 97.8 F 12/06/18 08:36 Pulse 89 12/06/18 08:36 Resp 16 12/06/18 08:36 BP 144/90 12/06/18 08:36 Pulse Ox 98 12/06/18 08:36 Vital Signs Reviewed: Yes Eye Exam: Normal Eyes: Positive: Conjunctiva Clear ENT: Positive: Normal ENT inspection, Hearing grossly normal, Pharyngeal erythema - thrush. Negative: Nasal congestion, Nasal drainage Neck: Positive: Supple, Nontender, No Lymphadenopathy Respiratory: Positive: Decreased breath sounds Cardiovascular: Positive: RRR Throat Pain/Nasal Course/Dx - Differential Dx/Diagnosis Provider Diagnosis: Thrush, COPD (chronic obstructive pulmonary disease) Discharge - Sign-Out/Discharge Documenting (check all that apply): Patient Departure All imaging exams completed and their final reports reviewed: No Studies - Discharge Plan Condition: Stable Disposition: HOME Prescriptions: Nystatin SUSPENSION ORAL SYR* 5 ml PO QID #200 ml predniSONE [Prednisone 20 MG TAB] 20 mg PO BID #6 tablet Patient Education Materials: Oral Candidiasis (ED), COPD (Chronic Obstructive Pulmonary Disease) (ED) Referrals: Marycruz Prabhakar MD [Primary Care Provider] - - Billing Disposition and Condition Condition: STABLE Disposition: Home
== END 2018-12-06 09:05 | disposition home or self-care (01) ==
LOC: UCCORT 08:25
DX: B37.0 Candidal stomatitis (principal); J44.9 Chronic obstructive pulmonary disease, unspecified; F17.210 Nicotine dependence, cigarettes, uncomplicated; Z88.8 Allergy status to other drugs, medicaments and biological substances
CPT/HCPCS: 99212; G0463

== ENCOUNTER 2018-12-16 20:20 | Emergency (ER) | payer MEDICARE ==
[2018-12-16 20:57] VITALS: BP 131/75
--- NOTE | 2018-12-16 21:13 | ED ---
Respiratory - HPI Summary HPI Summary: 58 yr old female with the complaint of fever, chills, cough productive of sputum , sinus pain and pressure for almost three weeks. Onset of symptoms on November 28. The patient has had a 50 pound weight loss over the past year. She has been under stress with a divorce, and parent in [place]. She is a smoker. She has been on amoxicillin and also on zithromax over the past three weeks. She still have the sinus pressure, sinus drainage of green and cough productive of sputum. Her Tmax the past week has been 101.5. - History of Current Complaint Chief Complaint: UCGeneralIllness Stated Complaint: FEVER/SINUS CONGESTION Time Seen by Provider: 12/16/18 20:50 Pain Intensity: 5 - Allergy/Home Medications Allergies/Adverse Reactions: Allergies Allergy/AdvReac Type Severity Reaction Status Date / Time methotrexate Allergy Pain Verified 12/16/18 20:47 pregabalin [From Lyrica] Allergy See Comment Verified 12/16/18 20:47 Home Medications: Home Medications Venlafaxine ER (NF) [Effexor ER (NF)] 150 mg PO DAILY 12/16/18 [History Confirmed 12/16/18] PMH/Surg Hx/FS Hx/Imm Hx Endocrine/Hematology History: Denies: Hx Diabetes, Hx Thyroid Disease Cardiovascular History: Denies: Hx Hypertension Respiratory History: Reports: Hx Asthma, Hx Chronic Obstructive Pulmonary Disease (COPD) GI History: Denies: Hx Ulcer - Surgical History Surgery Procedure, Year, and Place: Hysterectomy. Lymph Node Removal, LEFT THROAT 2010. hand x4 Infectious Disease History: Yes Infectious Disease History: Reports: Hx Shingles Denies: Hx Hepatitis, Hx Human Immunodeficiency Virus (HIV), Traveled Outside the [place] in Last 30 Days - Family History Known Family History: Positive: Hypertension - Social History Occupation: Employed Full-time Alcohol Use: None Substance Use Type: Reports: None Smoking Status (MU): Heavy Every Day Tobacco Smoker Type: Cigarettes Amount Used/How Often: less than half Have You Smoked in the Last Year: Yes Review of Systems Positive: Fever, Chills Positive: Nasal Discharge, Other - sinus pressure pain Positive: Cough All Other Systems Reviewed And Are Negative: Yes Physical Exam Triage Information Reviewed: Yes Vital Signs On Initial Exam: Initial Vitals Temp Pulse Resp BP Pulse Ox 97.5 F 85 16 131/75 99 12/16/18 20:51 12/16/18 20:51 12/16/18 20:51 12/16/18 20:51 12/16/18 20:51 Vital Signs Reviewed: Yes Appearance: Positive: Well-Appearing, No Pain Distress Skin: Positive: Warm, Skin Color Reflects Adequate Perfusion Head/Face: Positive: Normal Head/Face Inspection Eyes: Positive: EOMI ENT: Positive: Pharynx normal, Nasal congestion, Nasal drainage, TMs normal. Negative: Muffled voice, Hoarse voice Neck: Positive: Nontender Respiratory/Lung Sounds: Positive: Clear to Auscultation, Breath Sounds Present Cardiovascular: Positive: RRR. Negative: Murmur Abdomen Description: Negative: Distended Musculoskeletal: Positive: Strength/ROM Intact Neurological: Positive: Sensory/Motor Intact, Alert, Oriented to Person Place, Time, CN Intact II-III, Normal Gait, Speech Normal Psychiatric: Positive: Normal Diagnostics - Vital Signs Vital Signs Temp Pulse Resp BP Pulse Ox 12/16/18 20:51 97.5 F 85 16 131/75 99 - Laboratory Lab Statement: Any lab studies that have been ordered have been reviewed, and results considered in the medical decision making process. - Radiology chest xray [facility] Radiology Interpretation Completed By: Radiologist - NAD Disposition - Course Course Of Treatment: 58 yr old female who has been on zithromax and plain amoxicillin the past three weeks. WIll give a course of augmentin. She knows to call Dr Prabhakar for follow up tomorrow. Her final chest xray read is pending. - Diagnoses Provider Diagnoses: Sinusitis Discharge - Sign-Out/Discharge Documenting (check all that apply): Patient Departure All imaging exams completed and their final reports reviewed: No Studies - Discharge Plan Condition: Good Disposition: HOME Prescriptions: Amoxicillin/Clavulanate TAB* [Augmentin TAB 875*] 875 mg PO BID #20 tab Patient Education Materials: Sinusitis (ED) Referrals: Marycruz Prabhakar MD [Primary Care Provider] - 1 Day - Billing Disposition and Condition Condition: GOOD Disposition: Home
[2018-12-16] MEDS ORDERED: Amoxicillin/Clavulanate TAB* 875 MG PO ONE (21:34)
--- NOTE | 2018-12-16 21:35 | ED ---
Progress - Progress Note Progress Note: final read not reviewed yet. Course/Dx - Course Course Of Treatment: 58 yr old female who has been on zithromax and plain amoxicillin the past three weeks. WIll give a course of augmentin. She knows to call Dr Prabhakar for follow up tomorrow. Her final chest xray read is pending. - Diagnoses Provider Diagnoses: Sinusitis Discharge - Sign-Out/Discharge Documenting (check all that apply): Patient Departure All imaging exams completed and their final reports reviewed: No - Discharge Plan Condition: Good Disposition: HOME Prescriptions: Amoxicillin/Clavulanate TAB* [Augmentin TAB 875*] 875 mg PO BID #20 tab Patient Education Materials: Sinusitis (ED) Referrals: Marycruz Prabhakar MD [Primary Care Provider] - 1 Day - Billing Disposition and Condition Condition: GOOD Disposition: Home
--- NOTE | 2018-12-17 08:15 | UC ---
- Progress Note Progress Note: chest xray report : IMPRESSION: RIGHT MIDDLE LOBE INFILTRATE, RECOMMEND FOLLOW- UP CHEST X-RAYS TO RESOLUTION. please call the pt. with her xray report may cont. with Augmentin follow up with her pcp in 4 weeks , may need to repeat xray sooner if not better Course/Dx - Diagnoses Provider Diagnoses: Sinusitis Discharge - Sign-Out/Discharge Documenting (check all that apply): Patient Departure All imaging exams completed and their final reports reviewed: Yes - Discharge Plan Condition: Good Disposition: HOME Prescriptions: Amoxicillin/Clavulanate TAB* [Augmentin TAB 875*] 875 mg PO BID #20 tab Patient Education Materials: Sinusitis (ED) Referrals: Marycruz Prabhakar MD [Primary Care Provider] - 1 Day - Billing Disposition and Condition Condition: GOOD Disposition: Home
== END 2018-12-16 21:38 | disposition home or self-care (01) ==
LOC: UCCORT 20:20
DX: J32.9 Chronic sinusitis, unspecified (principal); F17.210 Nicotine dependence, cigarettes, uncomplicated; Z88.1 Allergy status to other antibiotic agents; Z88.8 Allergy status to other drugs, medicaments and biological substances; J44.9 Chronic obstructive pulmonary disease, unspecified
CPT/HCPCS: 71046; 99212; G0463

== ENCOUNTER 2022-05-02 13:19 | Observation (INO) ==
[~2022-05-02 13:19] MED LIST: Buffered Lidocaine 1% SYRIN 1 ml INTRADERM ONE; Lactated Ringers 1000 ml BAG 1,000 ML IV SCH; Naloxone 0.4 mg VIAL 0.4 mg/ml 1 ml VIAL IV PRN; Prochlorperazine 5 mg/ml 2 ml VIAL (10 mg) IV PRN
[2022-05-02] MEDS ORDERED: ceFAZolin 2 GM in NS PREMIX 2 GM/100 ML BAG IVPB ONE (13:31)
[2022-05-02] MEDS ORDERED: Midazolam 5 mg/ml concentrated 5 mg/ml 1 ml VIAL ONE (15:05)
[2022-05-02] MEDS ORDERED: fentaNYL 100 mcg/2 ml 50 MCG/ML VIAL ONE (15:05)
[2022-05-02] MEDS ORDERED: Propofol 10 MG/ML 20 ML BTL ONE (15:16)
[2022-05-02] MEDS ORDERED: Lidocaine 2% PF 5 ML VIAL ONE (15:16)
[2022-05-02] MEDS ORDERED: Rocuronium 50 mg VIAL 10 mg/ml 5 ml VIAL (50 mg) ONE ×2 (15:22→16:51)
[2022-05-02] MEDS ORDERED: ROPIVACAINE 5 MG/ML 30 ML BTL (0.5%) ONE ×2 (15:55→15:58)
[2022-05-02] MEDS ORDERED: fentaNYL 250 mcg/5 ml 50 MCG/ML 5 ml VIAL (250 MCG) ONE (16:16)
[2022-05-02] MEDS ORDERED: Ketamine HCL 50 mg/ml 10 ml VIAL (500 MG) ONE (17:06)
[2022-05-02] MEDS ORDERED: Dexamethasone IV 4 MG/ML VIAL 1 ml VIAL ONE (17:44)
[2022-05-02] MEDS ORDERED: Ondansetron 4 mg VIAL 2 MG/ML 2 ml VIAL ONE (17:44)
[2022-05-02] MEDS ORDERED: Phenylephrine 40 mcg/mL 10mL (400mcg) SYRINGE ONE (18:00)
[2022-05-02] MEDS ORDERED: Ondansetron ODT 4 mg TAB 4 MG TAB PO PRN (19:08)
[2022-05-02] MEDS ORDERED: Lactulose 30 ml UDC PO PRN (19:08)
[2022-05-02] MEDS ORDERED: Morphine 2 MG/ML SYRINGE IV PRN (19:08)
[2022-05-02] MEDS ORDERED: Ondansetron 4 mg VIAL 2 MG/ML 2 ml VIAL IV PRN (19:08)
[2022-05-02] MEDS ORDERED: Magnesium Hydroxide LIQ 30 ML UDC PO PRN (19:08)
[2022-05-02] MEDS ORDERED: Fluticasone NASAL SPRAY 50MCG 16 gm SPRAY BTL BOTH NARES PRN (19:15)
[2022-05-02] MEDS ORDERED: Budesonide NEB 0.25 MG/2 ML NEB.SOLN INH PRN (19:15)
[2022-05-02] MEDS ORDERED: Albuterol HFA INHALER 8 gm MDI INH PRN (19:15)
[2022-05-02] MEDS ORDERED: HYDROmorphone 1 MG/1 ML SYRINGE ONE (19:59)
[2022-05-02] MEDS: HYDROmorphone 1 MG/1 ML SYRINGE IV PRN ×2 (19:59→20:18)
[2022-05-02] MEDS ORDERED: Lactated Ringers 1000 ml BAG 1,000 ML IV SCH (20:00)
[2022-05-02] MEDS ORDERED: Atomoxetine 40 mg CAP (NF) PO SCH (21:00)
[2022-05-02] MEDS: Magnesium Hydroxide LIQ 30 ML UDC PO SCH (23:07)
[2022-05-03] MEDS: ceFAZolin 1 GM ADVAN 1 GM in NS 0.9% 50 ML 50 ML IVPB SCH ×2 (00:46→08:44)
[2022-05-03 05:43] LABS: Hematocrit 33 % (35-47); Hemoglobin 11.9 g/dL (12.0-16.0); Mean Platelet Volume 7.7 fL (7.4-10.4); Platelet Count 237 10^3/uL (150-450)
[2022-05-03 06:37] LABS: Calcium 9.4 mg/dL (8.6-10.3); Potassium 4.2 mmol/L (3.5-5.0); eGFR CKD-EPI 98.8 (>60)
[2022-05-03] MEDS: Magnesium Hydroxide LIQ 30 ML UDC PO SCH (08:46)
[2022-05-03] MEDS ORDERED: Venlafaxine XR 75 mg PO SCH (09:00)
[2022-05-03] MEDS ORDERED: CMCS: Atomoxetine 40 mg CAP (NF) PO SCH (09:00)
[2022-05-03] MEDS ORDERED: Vitamin THERAPEUTIC TAB PO SCH (09:00)
[2022-05-03] MEDS ORDERED: Nicotine PATCH 21 MG/24 HR PATCH TRANSDERM SCH (10:00)
[2022-05-03 11:05] VITALS: BP 150/88
== END 2022-05-03 12:30 | disposition home or self-care (01) | DRG 470 ==
LOC: EDACCT# → AA 13:19 → INTOOBSV 13:19 → SSU 21:37
PROVIDERS: ADMIT Orthopaedic Surgery Adult Reconstructive Orthopaedic Surgery; ATTEND Orthopaedic Surgery Adult Reconstructive Orthopaedic Surgery